=== PATIENT | male | born 1990 | race Caucasian/White ===

== ENCOUNTER 2020-10-25 07:58 | Day surgery (SDC) | payer OTHER ==
[2020-10-09 12:30] VITALS: BMI 25.0
[2020-10-25] MEDS ORDERED: ONDANSETRON 4 MG/2 ML VIAL ONE (09:32)
[2020-10-25] MEDS ORDERED: DEXAMETHASONE SOD PHOSPHATE 4 MG/1 ML VIAL ONE (09:32)
[2020-10-25] MEDS ORDERED: PROPOFOL 20 ML ONE ×2 (09:33→11:29)
[2020-10-25] MEDS ORDERED: MIDAZOLAM HCL 2 MG/2 ML SINGLE DOSE VIAL ONE (11:29)
[2020-10-25] MEDS ORDERED: ceFAZolin SODIUM 1 GM VIAL ONE (11:46)
[2020-10-25] MEDS ORDERED: BUPIVACAINE HCL/PF 0.25% (2.5MG/ML) 10 ML VIAL IJ ONE (12:52)
[2020-10-25] MEDS ORDERED: ONDANSETRON 4 MG/2 ML VIAL IVPUSH PRN (13:51)
[2020-10-25] MEDS ORDERED: oxyCODONE HCL 5 MG TABLET PO PRN ×2 (13:51)
[2020-10-25] MEDS ORDERED: LACTATED RINGERS SOLUTION 1,000 ML IV SCH (14:00)
[2020-10-25 14:33] VITALS: BP 122/74; PULSE 84; TEMP 98
== END 2020-10-25 14:33 | disposition home or self-care (01) ==
LOC: FASU 07:58
PROVIDERS: ATTEND Orthopaedic Surgery Hand Surgery
PROC: 0RSS04Z Reposition Right Carpometacarpal Joint with Internal Fixation Device, Open Approach (ICD-10-PCS; 2020-10-25)
PROC: 0PSP04Z Reposition Right Metacarpal with Internal Fixation Device, Open Approach (ICD-10-PCS; principal; 2020-10-25 11:57)
DX: S62.316A Displaced fracture of base of fifth metacarpal bone, right hand, initial encounter for closed fracture (principal); S63.051A Subluxation of other carpometacarpal joint of right hand, initial encounter; X58.XXXA Exposure to other specified factors, initial encounter; Y93.9 Activity, unspecified; Y92.9 Unspecified place or not applicable
CPT/HCPCS: 73130-TC-RT-FY; 94760